=== PATIENT | male | born 1990 | race Two or more races ===

== ENCOUNTER 2018-12-07 16:38 | Emergency (ER) | payer SELFPAY ==
[~2018-12-07] VITALS: Ht 180.3 cm; Wt 86.2 kg
--- NOTE | 2018-12-07 17:18 | NUR ---
PT LEFT BEFORE BEING ROOMED IN.
[2018-12-07 17:28] VITALS: BP 154/117
== END 2018-12-07 17:41 | disposition left against medical advice (07) ==
LOC: ER 16:38
DX: R51 Headache (principal); Z53.21 Procedure and treatment not carried out due to patient leaving prior to being seen by health care provider